=== PATIENT | female | born 1975 | race Caucasian/White ===

== ENCOUNTER 2016-08-03 14:40 | Outpatient (CLI) | payer BC | END 2016-08-03 14:41 | disposition home or self-care (01) | DX: M51.34 Other intervertebral disc degeneration, thoracic region (principal); M43.8X6 Other specified deforming dorsopathies, lumbar region; M54.5 Low back pain ==

== ENCOUNTER 2017-02-17 15:43 | Outpatient (CLI) | payer BC ==
--- NOTE | 2017-02-18 09:12 | Ultrasound Report ---
EXAM: PELVIC ULTRASOUND EXAM DATE: 02/17/2017 04:39 PM. CLINICAL HISTORY: EXCESSIVE BLEEDING IN THE PREMENOPAUSAL PERIOD. COMPARISON: None. TECHNIQUE: Realtime transabdominal pelvic scan performed to identify the uterus and adnexa and as an overview of other pelvic structures, followed by transvaginal scan to provide greater detail of the u terus and adnexa, with static image documentation. FINDINGS: Uterus: 9.3 x 5.1 x 4.0 cm, volume 98 cc. Anteverted position. Normal overall size and echotexture. Masses: There is a right mid fibroid measuring 1.5 (normal 0.0 cm, a right superior fibroid measuring 1.6 x 1.6 x 1.3 cm and a right superior fibroid measuring 2.7 x 2.3 x 2.2 cm. Endometrium: 8.6 mm. Normal. Cervix: Nabothian cysts Right Ovary: 2.5 x 1.4 x 0.4 cm, volume 2.5 cc. Normal echotexture and blood flow. Left Ovary: 3.4 x 2.6 x 1.1 cm, volume 7 cc. Normal echotexture and blood flow. Free Fluid: Small amount of free fluid in the pelvis. Other: None. IMPRESSION: 1. Myomatous uterus. 2. Endometrium is normal thickness. 3. Ovaries are unremarkable. 4. Small amount of free fluid in the pelvis may be physiologic. [facility] Referring Provider Line: [phone] SITE ID: [id number]
== END 2017-02-17 15:44 | disposition home or self-care (01) ==
LOC: DI 15:43
PROVIDERS: ATTEND Naturopath
DX: N92.4 Excessive bleeding in the premenopausal period (principal); R10.30 Lower abdominal pain, unspecified; D25.9 Leiomyoma of uterus, unspecified
CPT/HCPCS: 76830; 76856

== ENCOUNTER 2018-03-23 14:15 | Outpatient (CLI) | payer BC ==
[2018-03-23 17:59] LABS: BASOPHILS % (AUTO) 0.5 %; EOSINOPHILS # (AUTO) 0.1 10^3/uL (0.0-0.7); EOSINOPHILS % (AUTO) 1.3 %; HGB - HEMOGLOBIN 11.8 g/dL (12.0-16.0); LYMPHOCYTES # (AUTO) 1.8 10^3/uL (1.5-3.5); LYMPHOCYTES % (AUTO) 35.4 %; MEAN CORPUSCULAR HGB CONC 33.1 g/dL (32.0-36.0); MEAN CORPUSCULAR VOLUME 84.7 fL (81.0-99.0); MEAN PLATELET VOLUME 9.3 fL (7.9-10.8); MONOCYTES # (AUTO) 0.3 10^3/uL (0.0-1.0); MONOCYTES % (AUTO) 5.8 %; NEUTROPHILS # (AUTO) 2.9 10^3/uL (1.5-6.6); PLT - PLATELET COUNT 255 10^3/uL (130-450); RED BLOOD COUNT 4.21 10^6/uL (4.20-5.40); RED CELL DISTRIBUTION WIDTH 13.1 % (12.0-15.0)
[2018-03-23 18:48] LABS: THYROID STIMULATING HORMONE 1.05 uIU/mL (0.34-5.60)
[2018-03-23 18:53] LABS: FREE T4 (FREE THYROXINE) 1.01 ng/dL (0.58-1.64)
[2018-03-23 18:54] LABS: FERRITIN 36.5 ng/mL (11.0-306.8)
[2018-03-23 19:16] LABS: FOLLICLE STIMULATING HORMONE 95.53 mIU/mL
[2018-03-23 19:17] LABS: LUTEINIZING HORMONE 31.26 mIU/mL
[2018-03-24 08:46] LABS: ESTRADIOL <15 pg/mL
[2018-03-24 11:06] LABS: PROGESTERONE <0.5 ng/mL
[2018-03-26 12:05] LABS: DHEA SULFATE 170 mcg/dL (19-231)
== END 2018-03-23 14:16 | disposition home or self-care (01) ==
LOC: LAB.F 14:15
PROVIDERS: ATTEND Chiropractor Orthopedic
DX: R53.83 Other fatigue (principal)
CPT/HCPCS: 36415; 81599; 82627; 82670; 82672; 82728; 83001; 83002; 84144; 84403; 84439; 84443; 84481; 85025